=== PATIENT | female | born 1945 | race Caucasian/White ===

== ENCOUNTER → 2024-04-24 | Outpatient (CLI) | payer MEDICARE, OTHER, SELFPAY ==
--- NOTE | 2024-04-24 09:30 | XR_ITS ---
Examination: Screening digital mammography, bilateral Computer aided detection 3-D breast Tomosynthesis, bilateral Date and time of exam: April 24, 2024 0901 hours Compared to mammograms dating to April 28, 2021 Indication: Screening Technique: Nonmagnified MLO, CC views of the breasts to been obtained, reconstructed from 3-D Tomosynthesis images. R2 computer aided detection program utilized for evaluation of suspicious masses and/or abnormal calcifications. 3-D Tomosynthesis images obtained. Findings: Scattered areas of fibroglandular density. Benign calcifications. No interval suspicious masses Impression: BI-RADS category II: Benign Findings. Recommend 1 year follow-up mammogram.
== END | disposition home or self-care (01) ==
LOC: CDIM 08:54
PROVIDERS: Referring Provider Family Medicine; Visit Provider Family Medicine
DX: Z12.31 Encounter for screening mammogram for malignant neoplasm of breast (principal); R92.323 Mammographic fibroglandular density, bilateral breasts; R92.1 Mammographic calcification found on diagnostic imaging of breast
CPT/HCPCS: 77063; 77067

== ENCOUNTER → 2024-11-01 | Outpatient (CLI) | payer MEDICARE, OTHER, SELFPAY ==
[2024-11-01 10:35] LABS: Basophils % (Auto) 0 % (0-2.5); Eosinophils # (Auto) 0.1 Thou/mm3 (0.0-0.5); Eosinophils % (Auto) 1 % (0-10); Hemoglobin 14.4 g/dL (12.0-16.0); Immature Granulocytes % (Auto) 0 % (0-0); Immature Granulocytes Auto 0.02 Thou/mm3 (0.00-0.00); Lymphocytes # (Auto) 2.1 Thou/mm3 (1.0-4.8); Lymphocytes % (Auto) 30 % (10-50); Mean Corpuscular HGB Conc 32.7 g/dl (31.0-37.0); Mean Corpuscular Hemoglobin 29.4 pg (25.0-35.0); Mean Corpuscular Volume 90 fL (80-100); Monocytes # (Auto) 0.5 Thou/mm3 (0.0-0.8); Monocytes % (Auto) 8 % (0-12); Neutrophils # (Auto) 4.2 Thou/mm3 (1.8-7.7); Neutrophils % (Auto) 60 % (37-80); Nucleated Red Blood Cell % 0 /100 WBC (0); Platelet Count 241 Thou/mm3 (140-440); RDW Standard Deviation 46.6 fL (36.4-46.3); White Blood Count 6.9 Thou/mm3 (3.6-11.0)
[2024-11-01 10:57] LABS: Alanine Aminotransferase 20 U/L (10-49); Albumin, Serum 4.4 gm/dL (3.4-4.8); Albumin/Globulin Ratio 1.7 (1.2-2.2); Alkaline Phosphatase 39 U/L (46-116); Anion Gap 9 (7-16); Aspartate Amino Transferase 23 U/L (0-34); BUN/Creatinine Ratio 18 Ratio (12-20); Bilirubin,Total 0.5 mg/dL (0.3-1.2); Blood Urea Nitrogen 18 mg/dL (9-23); Calcium 9.3 mg/dL (8.3-10.6); Calcium (Corrected) 9.3 mg/dL (8.5-10.1); Carbon Dioxide 30.1 mMol/L (20.0-31.0); Cardiac Risk Estimate 2.4 RATIO (3.7-5.6); Chloride 103 mMol/L (98-107); Cholesterol 149 mg/dL (132-200); Globulin 2.6 gm/dL (2.3-3.5); Glucose 99 mg/dL (74-106); HDL Cholesterol 62 mg/dL (40-60); LDL Cholesterol,Calculated 66 mg/dL (0-130); Osmolality,Calculated 285 (275-295); Potassium 4.2 mMol/L (3.4-5.1); Sodium 142 mMol/L (136-145); Thyroid Stimulating Hormone 0.73 uIU/mL (0.55-4.78); Triglycerides 104 mg/dL (30-150); eGFR 58 See Note
[2024-11-01 13:26] LABS: T4 (Thyroxine) 7.6 mcg/dL (4.5-10.9)
== END | disposition home or self-care (01) ==
LOC: COPL 09:16
PROVIDERS: PCP Family Medicine; Referring Provider Family Medicine; Visit Provider Family Medicine
DX: E78.2 Mixed hyperlipidemia (principal); I10 Essential (primary) hypertension; I48.91 Unspecified atrial fibrillation; K21.9 Gastro-esophageal reflux disease without esophagitis; K58.0 Irritable bowel syndrome with diarrhea
CPT/HCPCS: 36415; 80053; 80061; 84436; 84443; 85025

== ENCOUNTER 2025-01-08 07:19 | Inpatient (IN) | payer MEDICARE, OTHER, SELFPAY ==
[2025-01-08] VITALS (11 sets, daily range): BP systolic 142–194; BP diastolic 78–101; PULSE 70–72; RESP 16–20; TEMP 36.1–36.8; O2SAT 95–97; BMI 33.6
--- NOTE | 2025-01-08 07:26 | EKG_ITS ---
[facility] Test Date: 2025-01-08 Pat Name: BRANDI STATON Department: Room: - Gender: Female Channel Marketing Coordinator: : 1945 Requested By: Jd Araya (ALCIRA) Order Number: [id number] Reading MD: Jd Araya (OFFAL BALER) Measurements Intervals [place] Rate: 69 P: 223 MD: 226 QRS: 23 QRSD: 98 T: 80 QT: 397 QTc: 428 Interpretive Statements ELECTRONIC ATRIAL PACEMAKER NONSPECIFIC ST & T-WAVE ABNORMALITY ABNORMAL RHYTHM ECG Compared to ECG 12/20/2023 13:04:09 T-wave abnormality now present Myocardial infarct finding no longer present /store/S0/[id number].pdf
--- NOTE | 2025-01-08 07:41 | XR_ITS ---
Examination: AP chest single view TECHNIQUE: AP portable upright chest single view Date and time: January 08, 2025, 0756 hours, comparison December 20, 2023 INDICATION: Chest pain and shortness of breath today. FINDINGS: Mild enlargement left ventricle. Cardiac leads stable position. Stable parenchymal and pleural scarring left base Mild pulmonary vascular redistribution. No lobar pneumonia IMPRESSION: Mild pulmonary vascular redistribution. Stable pleural and parenchymal scarring left base
--- NOTE | 2025-01-08 07:42 | EDRME_ITS ---
Rapid Medical Screening Exam E Arrival date/time: 01/08/25 07:19 79-year-old female presents to the Emergency Department today with complaints of syncopal episode last night patient reports he became dizzy prior to having the episode. Patient reports that on the she had an ablation with Dr. Johnson in [place] patient reports she had a syncopal episode on Tuesday as well Chief Complaint: Dizziness Vital signs: Vital Signs Temperature 98.2 F 01/08/25 07:35 Pulse Rate 70 01/08/25 07:35 Respiratory Rate 20 01/08/25 07:35 Blood Pressure 157/90 H 01/08/25 07:35 Pulse Oximetry (%) 97 01/08/25 07:35 Oxygen Delivery Method Room Air 01/08/25 07:35
--- NOTE | 2025-01-08 08:39 | PD.EDSYNC ---
ED Syncope RME/HPI General Chief Complaint: Dizziness Stated Complaint: PASSED OUT, DIZZY, NAUSEA Time Seen by Provider: 01/08/25 10:01 Arrival date/time: 01/08/25 07:19 Limitations: no limitations RME / HPI RME / HPI narrative: 01/08/25 07:19 79-year-old female presents to the Emergency Department today with complaints of syncopal episode last night patient reports he became dizzy prior to having the episode. Patient reports that on the she had an ablation with Dr. Johnson in [place] patient reports she had a syncopal episode on Tuesday as well DR. BRIDGER WEISS ED EVALUATION 79 year old female with history of atrial fibrillation, CAD, hypertension, hyperlipidemia, s/p cardiac ablation performed by Dr. Johnson in [place] on 12/31/2024, on presents to the ED for evaluation of syncopal episode today. Patient states she woke up at 03:30 AM today to use the restroom. States as she began to sit up on her bed she began to feel dizzy, described as a swaying sensation, and shortly after fell back to her bed. Accompanied by nausea and mild headache described as a fullness sensation. Patient reports she had experienced similar dizziness 3 days ago Tuesday; notes the dizziness during that time had also occurred first thing in the morning after standing up from the bed and after felt fatigued. Today she denies any fevers, chills, sweats, chest pain, cough, shortness of breath, abdominal pain, vomiting, diarrhea, or urinary symptoms. Patient reports she saw her cardio tech Dr. Solorzano yesterday and advised these episodes were less likely cardiac related and advised if occurred again to come to the ED. Related Data Home Medications ?Medication ?Instructions ?Recorded ?Confirmed omeprazole 20 mg tablet,delayed 1 tab PO DAILY ##0 04/20/13 10/20/22 release furosemide 40 mg tablet (Lasix) 40 mg PO QDAY #0 tabs 12/10/15 10/20/22 potassium chloride 10 mEq 10 meq PO QDAY #0 tabs 04/29/16 08/13/22 tablet,extended release (Klor-Con) ascorbic acid (vitamin C) 1,000 mg 1 g PO DAILY 05/30/20 08/13/22 tablet (Vitamin C) calcium 500 mg (as 1 tab PO QDAY 05/30/20 09/29/20 carbonate)-vitamin D3 5 mcg (200 unit) tablet (Calcium 500 + D) cholecalciferol (vitamin D3) 50 50 mcg PO QDAY 05/30/20 08/13/22 mcg (2,000 unit) capsule (Vitamin D3) milk thistle seed 1 tab PO DAILY 05/30/20 09/29/20 lp-wxvzlcgnzx-gygjixpbl-turmeri 250 mg-250 mg tablet (Liver Complex) iiwwecjqtgpo-Xp-amur-minerals 1 tab PO DAILY 05/30/20 08/13/22 meloxicam 15 mg tablet 15 mg PO DAILY 09/25/20 10/20/22 omega-3 fatty acids-vitamin E 1 cap PO DAILY 09/25/20 08/13/22 1,000 mg capsule Previous Rx's ?Medication ?Instructions ?Recorded simvastatin 20 mg tablet 1 tab PO HS #0 tabs 10/16/19 clonazepam 1 mg tablet 1 mg PO QDAY PRN Anxiety #0 tabs 08/13/20 loratadine 10 mg tablet 10 mg PO QDAY PRN Allergic 08/13/20 Symptoms #0 tabs amiodarone 200 mg tablet 200 mg PO QDAY #60 tabs 08/15/22 apixaban 5 mg tablet 5 mg PO BID #60 tabs 08/15/22 atenolol 25 mg tablet 25 mg PO QDAY #30 tabs 10/20/22 Allergies Allergy/AdvReac Type Severity Reaction Status Date / Time diclofenac (From Arthrote) Allergy Severe Swelling Verified 12/20/23 12:51 of Lip/Tongue/Throat Review of Systems Review of Systems Systems Reviewed: All systems reviewed, normal except as documented Past Medical History Past Medical History NEUROLOGIC: Positive Neurological Disorders, Transient Ischemic Attacks (TIA), Cerebral Palsy and Migraine CARDIAC: Positive Cardiac Disorders, Cardiac Arrhythmia, Atrial Fibrillation, Heart Murmur, Hypercholesterolemia and Hypertension RESPIRATORY: Positive Asthma and Pneumonia GASTROINTESTINAL: Positive Gastrointestinal Disorders, Hemorrhoids, Gastroesophageal Reflux Disease and Obesity REPRODUCTIVE: Positive Previous Pregnancies MUSCULOSKELETAL: Positive Musculoskeletal Disorders, Arthritis and Fractures ENT: Positive Cataracts PSYCHO/SOCIAL: Positive Depression and Anxiety OTHER HISTORY: Positive Hospitalization, Falls, Chicken Pox, Measles, Mumps and Pertussis Family History FAMILY HISTORY: Positive Family Cancer Surgical History SURGICAL: Positive Pacemaker, Angiogram and Tonsillectomy Social History SMOKING STATUS: Former smoker SUBSTANCE USE: does not use ED Exam General Limitations: Present no limitations General appearance: Present alert and in no apparent distress Head Head exam: Present atraumatic, normocephalic and normal inspection Eye Eye exam: Present normal appearance, PERRL and EOMI ENT ENT exam: Present normal exam, normal oropharynx and mucous membranes moist Neck Neck exam: Present normal inspection, full ROM and trachea midline Chest Chest inspection: Present normal inspection and symmetric chest wall rise Respiratory Respiratory exam: Present normal lung sounds bilaterally Cardiovascular Cardiovascular exam: Present regular rate, normal rhythm and normal heart sounds Abdominal Exam Abdominal exam: Present soft and normal bowel sounds Extremities Exam Extremities exam: Present normal inspection and full ROM Back Exam Back exam: Present normal inspection and full ROM Neurological Exam Neurological exam: Present alert, oriented X3 and CN II-XII intact Psychiatric Psychiatric exam: Present normal affect and normal mood Skin Skin exam: Present warm, dry, intact and normal color Course Quality Measures none Orders Category Date Time Status Cooler Worker NOW Care 01/08/25 07:41 Active EKG (ED ONLY) *Do not use* NOW Care 01/08/25 07:26 Completed Miscellaneous Nursing Order NOW Care 01/08/25 11:35 Active EKG (ED Only) Stat Exams 01/08/25 07:26 Draft XR chest 1V portable Stat Exams 01/08/25 07:41 Completed B-Type Natriuretic Peptide Stat Lab 01/08/25 08:45 Completed CBC Stat Lab 01/08/25 08:45 Completed Comprehensive Metabolic Panel Stat Lab 01/08/25 08:45 Completed Magnesium Stat Lab 01/08/25 08:45 Completed Partial Thromboplastin Time Stat Lab 01/08/25 08:45 Completed Prothrombin Time with INR Stat Lab 01/08/25 08:45 Completed Troponin I Stat Lab 01/08/25 08:45 Completed Ringers Lactated 1000 ml [Lactated Ringers] 1,000 ml Med 01/08/25 11:35 Discontinued IV 500 mls/hr Vital Signs Vital signs: Vital Signs Temperature 98.2 F 01/08/25 07:35 Pulse Rate 70 01/08/25 07:35 Respiratory Rate 20 01/08/25 07:35 Blood Pressure 157/90 H 01/08/25 07:35 Pulse Oximetry (%) 97 01/08/25 07:35 Oxygen Delivery Method Room Air 01/08/25 07:35 Pulse ox is 97% on room air which is adequate. Syncope MDM Narrative MDM Narrative:: Patient is a 79-year-old male to the [facility] ferment after having had a syncopal episode. Vital signs and exam as listed. Concern for ACS arrhythmia electrolyte abnormality among others. Ordered labs EKG chest x-ray offered medication for symptom relief. EKG performed today at 7:32 AM prolonged MN, normal QT, heart rate 69, nonspecific T wave changes, not a cardiac alert. Labs without acute hematologic or significant metabolic abnormality. No transaminitis, troponin not elevated 1220: I spoke with cardio tech Dr. Solorzano. Advised admission for further work-up. I spoke with hospitalist team A regarding admission. Patient data External records reviewed:: [facility] previous records (I reviewed ED Visit on 12/20/2023 ) Clinical information provided by:: patient Social determinants that could affect healthcare access:: none Patient has the following chronic illnesses:: CAD, paroxysmal atrial fibrillation, hypertension, hyperlipidemia How is presenting disease/condition affected by chronic disease/condition?: exacerbated by Evaluation data The following diagnostics were reviewed and interpreted by me:: lab results, radiology exam(s) and EKG tracing(s) Lab and/or radiology exams considered but not ordered:: None Interpretation Summary: Ordering Physician: Quiana PIERRE)Jd NP Date of Service: 01/08/25 Procedure(s): XR chest 1V portable Accession Number(s): [id number] cc: Quiana PIERRE)Jd NP; Jose Gold MD; Montse Casas MD~ Examination: AP chest single view TECHNIQUE: AP portable upright chest single view Date and time: January 08, 2025, 0756 hours, comparison December 20, 2023 INDICATION: Chest pain and shortness of breath today. FINDINGS: Mild enlargement left ventricle. Cardiac leads stable position. Stable parenchymal and pleural scarring left base Mild pulmonary vascular redistribution. No lobar pneumonia IMPRESSION: Mild pulmonary vascular redistribution. Stable pleural and parenchymal scarring left base Dictated By: Jose Gold MD Signed By: <Electronically signed by Jose Gold MD in [place]> 01/08/25 0844 Medications / Prescriptions Medications or Prescriptions considered but not ordered:: None Medication administrations:: Medication Administration History Acetaminophen (Acetaminophen 325 Mg Tablet) 650 mg PO Q6H PRN PRN Reason: Fever >101.5 Stop: 02/07/25 14:06 Acetaminophen (Acetaminophen 325 Mg Tablet) 650 mg PO Q6H PRN PRN Reason: PAIN SCALE 1-3 (mild Stop: 02/07/25 14:06 Apixaban (Apixaban 2.5 Mg Tablet) 5 mg PO BID [facility] Stop: 02/07/25 20:59 Atenolol (Atenolol 25 Mg Tablet) 50 mg PO BID [facility] Stop: 02/07/25 14:14 Last Admin: 01/08/25 15:24 Dose: 50 mg Documented By: PAM Atorvastatin Calcium (Atorvastatin Calcium 20 Mg Tablet) 20 mg PO HS [facility] Stop: 02/07/25 20:59 Labetalol HCl (Labetalol Inj 5 Mg/Ml Vial 20 Ml) 10 mg IVP Q10MIN PRN PRN Reason: sBP > 180 or dBP > 100 Stop: 02/07/25 14:29 Ondansetron HCl (Ondansetron Inj 2 Mg/Ml Inj 2 Ml) 4 mg IVP Q6H PRN; Protocol PRN Reason: NAUSEA OR VOMITING Stop: 02/07/25 14:06 Sennosides (Senna/Docusate Sod 1 Tab Tablet) 1 tab PO QDAY PRN; Protocol PRN Reason: CONSTIPATION Stop: 02/07/25 14:26 Discontinued Medications Lactated Ringer's (Lactated Ringers) 1,000 mls @ 500 mls/hr IV .Q2H ONE Stop: 01/08/25 13:34 Last Infusion: 01/08/25 15:21 Dose: Infused Documented By: Admin: 01/08/25 11:55 Dose: 500 mls/hr Documented By: PAM Pantoprazole Sodium (Pantoprazole 20 Mg Tablet) 20 mg PO QDAY [facility] Stop: 02/08/25 08:59 Pantoprazole Sodium (Pantoprazole 20 Mg Tablet) 20 mg PO QDAY [facility] Stop: 02/08/25 08:59 See above Consultations Consultation(s) initiated? (list below): Yes Consultation #1 (Physician, Specialty, Details): See MDM Diagnosis Syncope Differential Diagnosis: syncope due to orthostatic hypotension, vasovagal syncope, complete atrioventricular block, subarachnoid hemorrhage and dehydration Most likely diagnosis given after review of the tests above:: Recurrent syncope Admission Indicated Admission indicated?: indicated Admission Request Was there a request for admission?: Yes Admission Attestation Admission request attestation: Discussed case with [] from Hospitalist service regarding admission. Discussed patients ED course, exam findings, labs, and radiology results. The Hospitalist [agrees,declines] to accept the patient for admission. Disposition Plan Disposition Plan: Admit Critical Care Time Critical Care Time Critical Care Time: Yes Total Critical Care Time (min.): 45 Attestation: The high probability of sudden, clinically significant deterioration in the patient's condition required the highest level of my preparedness to intervene urgently. The services I provided to this patient were to treat and/or prevent clinically significant deterioration. Services included the following: chart data review, reviewing nursing notes and/or old charts, documentation time, data center consultant collaboration regarding findings and treatment options, medication orders and management, direct patient care, vital sign assessments and ordering, interpreting and reviewing diagnostic studies and lab tests. Aggregate critical care time includes only time during which I was engaged in work directly related to the patient's care, as described above, whether at bedside or elsewhere in the Emergency Department. It did not include time spent performing other reported procedures or the services of residents, students, nurses or physician assistants. Discharge Plan Plan Patient Disposition: Admit Acute Care w/in Hospital Problem List Clinical Impression: Recurrent syncope
[2025-01-08 09:05] LABS: Basophils # (Auto) 0.0 Thou/mm3 (0.0-0.2); Basophils % (Auto) 1 % (0-2.5); Eosinophils # (Auto) 0.1 Thou/mm3 (0.0-0.5); Eosinophils % (Auto) 2 % (0-10); Hematocrit 42.2 % (36.0-46.0); Hemoglobin 13.9 g/dL (12.0-16.0); Immature Granulocytes Auto 0.02 Thou/mm3 (0.00-0.00); Lymphocytes # (Auto) 1.7 Thou/mm3 (1.0-4.8); Lymphocytes % (Auto) 27 % (10-50); Mean Corpuscular HGB Conc 32.9 g/dl (31.0-37.0); Mean Corpuscular Hemoglobin 30.4 pg (25.0-35.0); Mean Corpuscular Volume 92 fL (80-100); Monocytes # (Auto) 0.5 Thou/mm3 (0.0-0.8); Monocytes % (Auto) 7 % (0-12); Neutrophils # (Auto) 4.0 Thou/mm3 (1.8-7.7); Neutrophils % (Auto) 64 % (37-80); Nucleated Red Blood Cell # 0.00 Thou/mm3 (0.00-0.00); Nucleated Red Blood Cell % 0 /100 WBC (0); Platelet Count 235 Thou/mm3 (140-440); RDW Standard Deviation 46.7 fL (36.4-46.3); Red Blood Count 4.57 Miln/mm3 (4.00-5.20); White Blood Count 6.3 Thou/mm3 (3.6-11.0)
[2025-01-08 09:17] LABS: B-Type Natriuretic Peptide 71 pg/mL (0-100)
[2025-01-08 09:19] LABS: INR 1.1 (0.9-1.3); Partial Thromboplastin Time 31.2 Seconds (22.0-36.0); Prothrombin Time 12.0 Seconds (9.0-12.2)
[2025-01-08 09:20] LABS: Alanine Aminotransferase 15 U/L (10-49); Albumin, Serum 4.3 gm/dL (3.4-4.8); Albumin/Globulin Ratio 1.7 (1.2-2.2); Alkaline Phosphatase 37 U/L (46-116); Anion Gap 11 (7-16); Aspartate Amino Transferase 28 U/L (0-34); BUN/Creatinine Ratio 12 Ratio (12-20); Bilirubin,Total 0.5 mg/dL (0.3-1.2); Blood Urea Nitrogen 11 mg/dL (9-23); Calcium 9.7 mg/dL (8.3-10.6); Calcium (Corrected) 9.7 mg/dL (8.5-10.1); Carbon Dioxide 28.5 mMol/L (20.0-31.0); Chloride 105 mMol/L (98-107); Creatinine (Component) 0.9 mg/dL (0.6-1.3); Estimated Creatinine Clearance 56.5 mL/min (>60); Globulin 2.5 gm/dL (2.3-3.5); Glucose 98 mg/dL (74-106); Magnesium 1.9 mg/dL (1.6-2.6); Osmolality,Calculated 286 (275-295); Potassium 4.2 mMol/L (3.4-5.1); Sodium 144 mMol/L (136-145); Total Protein 6.8 gm/dL (5.7-8.2); Troponin I < 0.020 ng/mL (0.0-0.045); eGFR > 60 See Note
[2025-01-08] MEDS: RINGERS LACTATED 1000 ML 1,000 ML 500 ML IV (11:55)
--- NOTE | 2025-01-08 14:28 | ESHP_ITS ---
<Statement entered by Xander Jalloh MD - 01/11/25 15:14> I reviewed above note and agree with findings and plans. I have also personally examined the patient with medicine team and went over assessment and plan with medical team including internet technology manager and resident physician. <Statement entered by Baljeet Ch MD - 01/08/25 15:46> Senior Resident Attestation: I supervised/discussed management plan with internet technology manager physician Dr. Carroll, and was involved in the care of this patient. I personally saw and examined the patient and discussed the assessment and plan with the entire medicine team, including my attending. I agree with the assessment and plan as documented. Patient is a 79 years old female with PMH of afib s/p ablation 12/31/24, sick sinus syndrome s/p pacemaker 12/18/2022, TIA, HLD, HTN, BPPV presented to the ED due to 2 episodes of syncope and dizziness. Initial work up in the ED was negative. Cardiology was consulted in the ED and patient was admitted to telemetry for further work up and rule out cardiac reasons of her syncope episodes given recent cardiac ablation. Patient's care was discussed with attending physician, Dr. Jalloh. Baljeet Ch MD PGY-3. Documentation for date of: 01/08/25 HPI History of Present Illness History of present illness: Ms. Smith is a 79 y/o female with PMH of afib s/p ablation 12/31/24, sick sinus syndrome s/p pacemaker 12/18/2022, TIA, HLD, HTN, BPPV who presents with 2 episodes of syncope preceded by dizziness. Patient had a syncopal episode Tuesday night when she sat up in bed. When she sat up, she began to feel dizzy which lasted for several seconds, had a several second syncopal episode with LOC, then fully regained consciousness without confusion. This happened again last night. Patient previously had cardiac ablation on 12/31/[address] Johnson in [place]. She follows with Dr. Solorzano, who she saw yesterday outpatient for the syncopal episode. He was minimally concerned for cardiac cause of syncope but counseled patient on going to the ED if symptoms occurred again. Patient previously had 1 syncopal episode several years ago that presented with the same symptoms of dizziness prodrome while sitting that lasted a few seconds, a few seconds of LOC, then complete and immediate return to consciousness. Patient denies chest pain, abdominal pain, shortness of breath, LE swelling, recent illnesses, recent travel. She does have a hx of BPPV which usually resolves with the Fozia maneuver and specific eye exercises. She tried these exercises on Tuesday after the syncopal episodes, and this triggered a vertigo attack. Patient reports that she took her BP at home when she had the first syncopal episode, notes that it was unremarkable but could not remember the exact BP. Patient was examined at bedside. She reports continued dizziness with vertigo. Orthostatics positive. Denies headache or acute changes in vision. At bedside pt BP was 199/107. ED course: BP 157/90, positive orthostatics. CBC, CMP, coags WNL. Troponin negative, BNP negative. EKG showed atrial pacing HR 69, QTc 428. CXR showed stable/chronic parenchymal and pleural scarring of the left base c/w interstitial disease. Given 1L LR. Consulted Dr. Solorzano. PMHx: Afib (dx 01/29/2024) s/p ablation on Eliquis TIA 08/12/2022 Hyperlipidemia sick sinus syndrome s/p pacemaker 12/18/2022 Hypertension BPPV Interstitial lung disease [place], black , coyote bites Allergies: Metoprolol - itching Amiodarone - itching and swelling of tongue Cardizem - itching Diclofenac - swelling Home meds: Eliquis 5 mg BID Atenolol 50 mg BID Simvastatin 20 mg daily Clonazepam 1 mg QD PRN Omeprazole 20 mg daily Multivitamin Calcium 1200 mg daily Vitamin C 1000 mg daily B complex citamin D3 25 mcg daily Xyzal 5 mg daily PRN SgHx: Cardiac ablation 12/31/24 Pacemaker implant 12/18/2022 Left knee tendon repair 04/23/2013 Right shoulder rotator cuff repair 05/25/2016 SHx: Quit smoking 15 years ago Quit drinking 2-3 years ago, 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 Denies recreational drug use Lives at home with FHx: unremarkable Review of Systems Review of Systems Narrative Review of Systems: 14 point ROS negative other than HPI Exam Vital Signs Temp Pulse Resp BP Pulse Ox O2 Del Method 98.2 F 70 17 154/81 H 96 Room Air 01/08/25 07:35 01/08/25 11:41 01/08/25 09:58 01/08/25 11:41 01/08/25 09:58 01/08/25 09:58 Narrative Exam General: No acute distress, well nourished Eye: PERRL, EOMI, normal conjunctiva, no scleral icterus HENT: Normocephalic, atraumatic, normal hearing, moist oral mucosa Neck: Supple, non-tender, no JVD, no lymphadenopathy Lungs: Clear to auscultation bilaterally, non-labored respirations, symmetric chest rise, no use of accessory muscles Heart: Normal S1 and S2, no S3 or S4 appreciated. Normal rate and regular rhythm, no murmurs, rubs gallops, or edema. Peripheral pulses intact bilaterally, capillary refill brisk distally Abdomen: Soft, non-tender, non-distended, normal bowel sounds. No guarding or rebound tenderness. Musculoskeletal: Normal range of motion and strength, no tenderness or swelling Skin: Skin is warm, dry, no rashes or lesions. Neurologic: Alert, awake and oriented x3. CN II-XII grossly intact. No focal neuro deficits. Psychiatric: Cooperative, appropriate mood and affect Results: Labs 01/08/25 08:45 01/08/25 08:45 Labs: Short CBC 01/08/25 Range/Units 08:45 WBC 6.3 (3.6-11.0) Thou/mm3 Hgb 13.9 (12.0-16.0) g/dL Hct 42.2 (36.0-46.0) % Plt Count 235 (140-440) Thou/mm3 [facility] 01/08/25 08:45 Sodium 144 Potassium 4.2 Chloride 105 Carbon Dioxide 28.5 BUN 11 Creatinine 0.9 Glucose 98 Calcium 9.7 Cardiac Enzymes 01/08/25 Range/Units 08:45 Troponin I < 0.020 (0.0-0.045) ng/mL Liver Function 01/08/25 Range/Units 08:45 Total Bilirubin 0.5 (0.3-1.2) mg/dL AST 28 (0-34) U/L ALT 15 (10-49) U/L Alkaline Phosphatase 37 L (46-116) U/L Albumin 4.3 (3.4-4.8) gm/dL Quality Measures Quality Measures none Advance care planning discussed with:: patient and spouse Medications Home Medications and Allergies Home Medications ?Medication ?Instructions ?Recorded ?Confirmed ?Type omeprazole 20 mg tablet,delayed 1 tab PO DAILY ##0 10/2610/20/22 History release furosemide 40 mg tablet (Lasix) 40 mg PO QDAY #0 tabs 12/10/15 10/20/22 History potassium chloride 10 mEq 10 meq PO QDAY #0 tabs 04/2908/13/22 History tablet,extended release (Klor-Con) ascorbic acid (vitamin C) 1,000 mg 1 g PO DAILY 08/13/22 History tablet (Vitamin C) calcium 500 mg (as 1 tab PO QDAY 05/30/2009/29 History carbonate)-vitamin D3 5 mcg (200 unit) tablet (Calcium 500 + D) cholecalciferol (vitamin D3) 50 50 mcg PO QDAY 08/13/22 History mcg (2,000 unit) capsule (Vitamin D3) milk thistle seed 1 tab PO DAILY 05/30/2009/13 History yb-cvaxilmyic-cwajaweln-turmeri 250 mg-250 mg tablet (Liver Complex) xloqkomjcxut-Zo-xebn-minerals 1 tab PO DAILY 05/30/20 08/13/22 History meloxicam 15 mg tablet 15 mg PO DAILY 09/25/2012/05 History omega-3 fatty acids-vitamin E 1 cap PO DAILY 09/25/20 08/13/22 History 1,000 mg capsule Allergies Allergy/AdvReac Type Severity Reaction Status Date / Time diclofenac (From Arthrote) Allergy Severe Swelling Verified 12/20/23 12:51 of Lip/Tongue/Throat Visit Medications Acetaminophen (Acetaminophen 325 Mg Tablet) 650 mg PO Q6H PRN PRN Reason: Fever >101.5 Stop: 02/07/25 14:06 Acetaminophen (Acetaminophen 325 Mg Tablet) 650 mg PO Q6H PRN PRN Reason: PAIN SCALE 1-3 (mild Stop: 02/07/25 14:06 Apixaban (Apixaban 2.5 Mg Tablet) 5 mg PO BID IMLADY Stop: 02/07/25 20:59 Atenolol (Atenolol 25 Mg Tablet) 50 mg PO BID MILADY Stop: 02/07/25 14:14 Atorvastatin Calcium (Atorvastatin Calcium 20 Mg Tablet) 20 mg PO HS MILADY Stop: 02/07/25 20:59 Labetalol HCl (Labetalol Inj 5 Mg/Ml Vial 20 Ml) 10 mg IVP Q10MIN PRN PRN Reason: sBP > 180 or dBP > 100 Stop: 02/07/25 14:29 Ondansetron HCl (Ondansetron Inj 2 Mg/Ml Inj 2 Ml) 4 mg IVP Q6H PRN; Protocol PRN Reason: NAUSEA OR VOMITING Stop: 02/07/25 14:06 Pantoprazole Sodium (Pantoprazole 20 Mg Tablet) 20 mg PO QDAY MILADY Stop: 02/08/25 08:59 Sennosides (Senna/Docusate Sod 1 Tab Tablet) 1 tab PO QDAY PRN; Protocol PRN Reason: CONSTIPATION Stop: 02/07/25 14:26 Discontinued Medications Lactated Ringer's (Lactated Ringers) 1,000 mls @ 500 mls/hr IV .Q2H ONE Stop: 01/08/25 13:34 Last Admin: 01/08/25 11:55 Dose: 500 mls/hr Assessment & Plan Plan Ms. Smith is a 79 y/o female with PMH of afib s/p ablation 12/31/24, sick sinus syndrome s/p pacemaker 12/18/2022, TIA, HLD, HTN, BPPV who presents with 2 episodes of syncope preceded by dizziness. Admitted for syncope workup. #Syncope 2 episodes of syncope in the past 4 days when sitting up from supine position. Prodrome several seconds of dizziness. LOC for several seconds. Complete and immediate return of consciousness w/o confusion Pt had one episode of syncope years ago. Similar presentation. EKG, Troponin, CBC, CMP, BNP WNL. Orthostatics positive. Likely orthostatic in nature. Other DDX includes cardiac etiology/arrhythmia Plan: - Consulted Dr. Solorzano, appreciate recs - Given 1L LR in ED. #Hypertension 199/107 in ED after 1L LR given Plan: - Continue Atenolol 50 mg PO BID - Labetalol 10 mg IV q10min PRN sBP > 180 or dBP > 100 #Afib s/p ablation 12/31/24 #Sick sinus syndrome s/p pacemarker Home med: Eliquis 5 mg PO BID, Atenolol 50 mg BID Plan: - Continue home Eliquis 5 mg PO BID - Continue home Atenolol 50 mg PO BID #TIA #Hyperlipidemia Home med: Simvastatin 20 mg QHS (not on formulary) Plan: - Atorvastatin 20 mg PO QHS Checklist Dispo: Pending syncope workup Diet: Cardiac Bowel Reg: Doc-Senna daily PRN VTE ppx: Eliquis 5 mg PO BID GI ppx: Pantoprazole 20 mg PO daily Pain mgmt: Tylenol PRN Code status: full Plan discussed with Dr. Ch and Dr. Yeimi Carroll MD PGY1
--- NOTE | 2025-01-08 15:59 | ESCONSULT_ITS ---
<Statement entered by Winnie Solorzano MD - 01/16/25 22:49> I personally examined the patient and evaluated patient with resident physician Dr. Jarad Carrillo and the patient known to me history of paroxysmal afibrillation status post ablation came to the hospital multiple symptoms including dizziness syncopal episode possible vasovagal depressor syncope no clear etiology no arrhythmias seen will monitor the patient overnight reevaluate her if she has no further symptoms discharged home agree with treatment plan recommendation as documented patient also should be hydrated she may have some clinical dehydration. HPI Data of Consult Requesting Physician: Xander Jalloh MD Admitting Provider: Xander Jalloh MD Attending Provider: Xander Jalloh MD Primary Care Provider: Montse Casas MD Consult Narrative History of present illness: 79-year-old female with a PMH of A-fib status post cardiac ablation on 12/31/2024, CAD, hypertension, hyperlipidemia, on Eliquis who presented to the ED on 01/08/2025 after a syncopal episode. On arrival she stated that she woke up at 3:30 in the morning to use the restroom and that as she began to sit up she felt dizzy, described as a swaying sensation and shortly afterwards fell back to her bed. This was accompanied by nausea and mild headache described as a fullness sensation. She reported that she had experienced similar dizziness 3 days ago and notes that the dizziness during that time had also occurred for Johnson in the morning after standing up from her bed. On arrival she denied fevers chills sweats chest pain cough shortness of breath abdominal pain vomiting diarrhea or urinary symptoms. The patient is well-known to Dr. Solorzano and was seen in the office on 01/07/2025. She mentioned that she had been feeling somewhat tired but denied chest pain or shortness of breath. ED course: BP 157/90, positive orthostatics. CBC, CMP, coags WNL. Troponin negative, BNP negative. EKG showed atrial pacing HR 69, QTc 428. CXR showed stable/chronic parenchymal and pleural scarring of the left base c/w interstitial disease. Given 1L LR. Reason for consult: Cardiology was consulted for management of the patient's syncopal episode. History PMH: Hyperlipidemia, HTN, angina, CAD, supraventricular premature beats, palpitations, TIA 08-12-2022, sick sinus syndrome status post pacemaker 12/18/2022, BPPV, interstitial lung disease Surgical history: Ablation 12/31/2024, cyst removal 2020, cataract X2 2018, shoulder 06/2016, knee 2016 Family history: Cancer unspecified Social history: Former smoker, no alcohol Allergies: Diclofenac, misoprostol, norco, metoprolol, Cardizem, amiodarone Home medications: Clonazepam Vitamin C Vitamin D Omeprazole Simvastatin Eliquis Xyzal Calcium Super B Complex Atenolol Flecainide cc:: cc: Xander Jalloh MD Review of Systems Review of Systems Narrative Review of Systems: Review of Systems: At time of cardiology consultation * General: Denies fevers, chills. * HEENT: Denies headache, congestion, or sore throat. * Cardiac: Denies chest pain or palpitations. * Pulmonary: Denies shortness of breath or cough. * GI: Denies nausea, vomiting, diarrhea, constipation, melena, or hematochezia. (Had nausea in the morning during syncopal episode, has since resolved) * : Denies dysuria, hematuria, frequency, or urgency. * MSK: Denies pain in the extremities, joints, or myalgias. * Neuro: Patient mentions that she sees double occasionally. Denies weakness, numbness, or speech difficulty. Exam Vital Signs Temp Pulse Resp BP Pulse Ox O2 Del Method 98.2 F 70 16 142/81 H 96 Room Air 01/08/25 07:35 01/08/25 15:24 01/08/25 15:00 01/08/25 15:24 01/08/25 15:00 01/08/25 15:00 Results Labs 01/08/25 08:45 01/08/25 08:45 Labs: Short CBC 01/08/25 Range/Units 08:45 WBC 6.3 (3.6-11.0) Thou/mm3 Hgb 13.9 (12.0-16.0) g/dL Hct 42.2 (36.0-46.0) % Plt Count 235 (140-440) Thou/mm3 BMP 01/08/25 08:45 Sodium 144 Potassium 4.2 Chloride 105 Carbon Dioxide 28.5 BUN 11 Creatinine 0.9 Glucose 98 Calcium 9.7 Cardiac Enzymes 01/08/25 Range/Units 08:45 Troponin I < 0.020 (0.0-0.045) ng/mL Liver Function 01/08/25 Range/Units 08:45 Total Bilirubin 0.5 (0.3-1.2) mg/dL AST 28 (0-34) U/L ALT 15 (10-49) U/L Alkaline Phosphatase 37 L (46-116) U/L Albumin 4.3 (3.4-4.8) gm/dL Quality Measures Quality Measures none Advance care planning discussed with:: patient Medications Home Medications and Allergies Home Medications ?Medication ?Instructions ?Recorded ?Confirmed ?Type omeprazole 20 mg tablet,delayed 1 tab PO DAILY ##0 10/2610/20/22 History release furosemide 40 mg tablet (Lasix) 40 mg PO QDAY #0 tabs 12/10/15 10/20/22 History potassium chloride 10 mEq 10 meq PO QDAY #0 tabs 04/2908/13/22 History tablet,extended release (Klor-Con) ascorbic acid (vitamin C) 1,000 mg 1 g PO DAILY 08/13/22 History tablet (Vitamin C) calcium 500 mg (as 1 tab PO QDAY 05/30/2009/29 History carbonate)-vitamin D3 5 mcg (200 unit) tablet (Calcium 500 + D) cholecalciferol (vitamin D3) 50 50 mcg PO QDAY 08/13/22 History mcg (2,000 unit) capsule (Vitamin D3) milk thistle seed 1 tab PO DAILY 05/30/2009/13 History bf-otrbljqnku-sdtjcdwwm-turmeri 250 mg-250 mg tablet (Liver Complex) uqyycgcptape-Dq-krkn-minerals 1 tab PO DAILY 05/30/20 08/13/22 History meloxicam 15 mg tablet 15 mg PO DAILY 09/25/2012/05 History omega-3 fatty acids-vitamin E 1 cap PO DAILY 09/25/20 08/13/22 History 1,000 mg capsule Allergies Allergy/AdvReac Type Severity Reaction Status Date / Time diclofenac (From Arthrotec) Allergy Severe Swelling Verified 12/20/23 12:51 of Lip/Tongue/Throat amiodarone Allergy Swelling Verified 01/08/25 18:14 of Lip/Tongue/Throat diltiazem (From Cardizem) Allergy itching Verified 01/08/25 18:14 metoprolol Allergy itching Verified 01/08/25 18:14 Visit Medications Acetaminophen (Acetaminophen 325 Mg Tablet) 650 mg PO Q6H PRN PRN Reason: Fever >101.5 Stop: 02/07/25 14:06 Acetaminophen (Acetaminophen 325 Mg Tablet) 650 mg PO Q6H PRN PRN Reason: PAIN SCALE 1-3 (mild Stop: 02/07/25 14:06 Apixaban (Apixaban 2.5 Mg Tablet) 5 mg PO BID MILADY Stop: 02/07/25 20:59 Atenolol (Atenolol 25 Mg Tablet) 50 mg PO BID MILADY Stop: 02/07/25 14:14 Last Admin: 01/08/25 15:24 Dose: 50 mg Atorvastatin Calcium (Atorvastatin Calcium 20 Mg Tablet) 20 mg PO HS MILADY Stop: 02/07/25 20:59 Labetalol HCl (Labetalol Inj 5 Mg/Ml Vial 20 Ml) 10 mg IVP Q10MIN PRN PRN Reason: sBP > 180 or dBP > 100 Stop: 02/07/25 14:29 Ondansetron HCl (Ondansetron Inj 2 Mg/Ml Inj 2 Ml) 4 mg IVP Q6H PRN; Protocol PRN Reason: NAUSEA OR VOMITING Stop: 02/07/25 14:06 Sennosides (Senna/Docusate Sod 1 Tab Tablet) 1 tab PO QDAY PRN; Protocol PRN Reason: CONSTIPATION Stop: 02/07/25 14:26 Discontinued Medications Lactated Ringer's (Lactated Ringers) 1,000 mls @ 500 mls/hr IV .Q2H ONE Stop: 01/08/25 13:34 Last Infusion: 01/08/25 15:21 Dose: Infused Pantoprazole Sodium (Pantoprazole 20 Mg Tablet) 20 mg PO QDAY MILADY Stop: 02/08/25 08:59 Pantoprazole Sodium (Pantoprazole 20 Mg Tablet) 20 mg PO QDAY MILADY Stop: 02/08/25 08:59 Assessment & Plan Plan 79-year-old female with a PMH of A-fib status post cardiac ablation on 12/31/2024, CAD, hypertension, hyperlipidemia, on Eliquis who presented to the ED on 01/08/2025 after syncopal episode. Cardiology was consulted for management of patient's syncopal episode. #Syncope #A-fib on Eliquis status post ablation #Hypertension #Supraventricular arrhythmia #Hypertension #Sick sinus syndrome status post pacemaker placement #TIA #Hyperlipidemia - The patient's syncope may be due to several different factors including. Consider dehydration, autonomic dysfunction, previously unknown ventricular arrhythmia. - Patient was slightly dehydrated upon presentation per the ED nurse, probably less likely culprit of syncope. - Patient is slightly orthostatically hypertensive, her blood pressure laying down is 154/81, standing it is 149/101. However, sitting it is 174/78. This may reinforce autonomic dysfunction as the culprit to the syncope. - The patient had a recent ablation due to A-fib. Given the patient's cardiac history consider ventricular arrhythmia previously unknown as a possible syncope culprit. - Patient is on Eliquis, not on aspirin, Eliquis sufficient for anticoagulation status post ablation Plan: - Echo ordered - Recommend repeat orthostatic blood pressures - Monitor the patient's rhythm, consider future Holter monitor - Continue Eliquis, labetalol, home medications for hypertension and hyperlipidemia - Will do pacemaker interrogation Patient was seen and discussed with my attending physician Dr. Solorzano. Jarad Carrillo DO PGY-1.
[2025-01-08] MEDS: LABETALOL INJ 5 MG/ML VIAL 20 ML 10 MG IVP (17:30)
[2025-01-08] MEDS: ATORVASTATIN CALCIUM 20 MG TABLET PO (20:38)
[2025-01-08] MEDS: APIXABAN 2.5 MG TABLET 5 MG PO (20:38)
[2025-01-09] VITALS (9 sets, daily range): BP systolic 129–163; BP diastolic 73–93; PULSE 70–73; RESP 16–20; TEMP 36.1–36.7; O2SAT 95–98; BMI 34.4
[2025-01-09 06:05] LABS: Basophils # (Auto) 0.0 Thou/mm3 (0.0-0.2); Basophils % (Auto) 0 % (0-2.5); Eosinophils # (Auto) 0.1 Thou/mm3 (0.0-0.5); Eosinophils % (Auto) 2 % (0-10); Hematocrit 40.8 % (36.0-46.0); Hemoglobin 13.0 g/dL (12.0-16.0); Immature Granulocytes Auto 0.01 Thou/mm3 (0.00-0.00); Lymphocytes # (Auto) 2.5 Thou/mm3 (1.0-4.8); Lymphocytes % (Auto) 35 % (10-50); Mean Corpuscular HGB Conc 31.9 g/dl (31.0-37.0); Mean Corpuscular Hemoglobin 29.7 pg (25.0-35.0); Mean Corpuscular Volume 93 fL (80-100); Monocytes # (Auto) 0.6 Thou/mm3 (0.0-0.8); Monocytes % (Auto) 8 % (0-12); Neutrophils # (Auto) 3.8 Thou/mm3 (1.8-7.7); Neutrophils % (Auto) 54 % (37-80); Nucleated Red Blood Cell # 0.00 Thou/mm3 (0.00-0.00); Nucleated Red Blood Cell % 0 /100 WBC (0); Platelet Count 213 Thou/mm3 (140-440); RDW Standard Deviation 47.1 fL (36.4-46.3); Red Blood Count 4.38 Miln/mm3 (4.00-5.20); White Blood Count 7.0 Thou/mm3 (3.6-11.0)
[2025-01-09 06:24] LABS: Alanine Aminotransferase 16 U/L (10-49); Albumin, Serum 3.9 gm/dL (3.4-4.8); Albumin/Globulin Ratio 1.6 (1.2-2.2); Alkaline Phosphatase 35 U/L (46-116); Anion Gap 11 (7-16); Aspartate Amino Transferase 25 U/L (0-34); BUN/Creatinine Ratio 11 Ratio (12-20); Bilirubin,Total 0.6 mg/dL (0.3-1.2); Blood Urea Nitrogen 8 mg/dL (9-23); Calcium 9.6 mg/dL (8.3-10.6); Calcium (Corrected) 9.7 mg/dL (8.5-10.1); Carbon Dioxide 26.7 mMol/L (20.0-31.0); Chloride 107 mMol/L (98-107); Creatinine (Component) 0.7 mg/dL (0.6-1.3); Estimated Creatinine Clearance 73.6 mL/min (>60); Globulin 2.5 gm/dL (2.3-3.5); Glucose 89 mg/dL (74-106); Magnesium 1.9 mg/dL (1.6-2.6); Osmolality,Calculated 286 (275-295); Phosphorous 3.7 mg/dL (2.4-5.1); Potassium 3.7 mMol/L (3.4-5.1); Sodium 145 mMol/L (136-145); Total Protein 6.4 gm/dL (5.7-8.2); eGFR > 60 See Note
--- NOTE | 2025-01-09 07:14 | ESPR_ITS ---
<Statement entered by Xander Jalloh MD - 01/11/25 15:14> I reviewed above note and agree with findings and plans. I have also personally examined the patient with medicine team and went over assessment and plan with medical team including general internist and physician leader and resident physician. <Statement entered by Kristopher Rey MD - 01/09/25 12:49> Patient was examined and case was reviewed with team including attending physician. Note reviewed, I agree with most of its contents and agree with the patient's care as documented by Dr. Carroll Patient seen and evaluated at the bedside. No overnight events reported. Vital signs and labs reviewed. Orthostatic vital signs positive. Continues to report dizziness and lightheadedness. Patient is pending echocardiogram and pacemaker interrogation by cardiology team. Head CT was also ordered as part of syncope workup. Case discussed with my attending Dr. Yeimi Rey MD PGY-2 Disclaimer: Despite multiple revisions, due to the dictation software being used, the document bellow may not be free of grammatical errors including phonetic/typographic errors. However, this does not deter from our commitment to providing health care in the patient's best interest in mind. Documentation for date of: 01/09/25 Subjective Subjective Interval history: BP elevated yesterday sBP 190s. Restarted home Atenolol 50 mg PO BID. Needed labetalol 10 mg IV x1 yesterday for HTN. Cardiology consulted, noted that Eliquis should be enough without ASA or plavix given hx of afib s/p ablation and hx TIA. Patient evaluated at bedside. She reports continued dizziness. Denies diplopia, continued blurry vision. Last saw optometry within the past year. No further episodes of syncope while in hospital. Orthostatics this AM negative after IV fluids. Does not have much of an appetite but was able to eat some of her breakfast. Exam Vital Signs Temp Pulse Resp BP Pulse Ox O2 Del Method 98.0 F 71 18 163/86 H 98 Room Air 01/09/25 04:00 01/09/25 04:00 01/09/25 04:00 01/09/25 04:00 01/09/25 04:00 01/09/25 04:00 Narrative Exam General: No acute distress, well nourished Eye: PERRL, EOMI, normal conjunctiva, no scleral icterus HENT: Normocephalic, atraumatic, normal hearing, moist oral mucosa Neck: Supple, non-tender, no JVD, no lymphadenopathy Lungs: Clear to auscultation bilaterally, non-labored respirations, symmetric chest rise, no use of accessory muscles Heart: Normal S1 and S2, no S3 or S4 appreciated. Normal rate and regular rhythm, no murmurs, rubs gallops, or edema. Peripheral pulses intact bilaterally, capillary refill brisk distally Abdomen: Soft, non-tender, non-distended, normal bowel sounds. No guarding or rebound tenderness. Musculoskeletal: Normal range of motion and strength, no tenderness or swelling Skin: Skin is warm, dry, no rashes or lesions. Psychiatric: Cooperative, appropriate mood and affect Neurologic: Mental status: Orientation: Oriented to person, place, time, and situation Communication: Patient is cooperative and can follow simple instructions Language: Speech fluent, normal rate and volume, comprehension intact Cranial nerves: CN II: Visual colvin intact CN III: Pupils equal, round, and reactive to light CN III, IV, : No gaze deviation, no nystagmus Horizontal pursuit: intact Vertical pursuit: intact Ptosis: none CN V: Facial sensation to light touch intact bilaterally at the forehead, cheeks, and jaw line CN VII: Face symmetric, no facial droop appreciated CN VIII: Able to hear and respond to conversation at normal volume, intact to finger rub CN IX, X: Palate elevation symmetric, uvula midline CN XI: Head turn and shoulder shrug strong, symmetric bilaterally CN XII: Normal tongue protrusion without deviation, no fasciculations Motor: Normal bulk and tone No atrophy No abnormal movements or fasciculations Muscle strength: Shoulder abduction: R 5/5 L 5/5 Elbow flexion: R 5/5 L 5/5 Elbow extension: R 5/5 L 5/5 Hip flexion: R 5/5 L 5/5 Hip extension: R 5/5 L 5/5 Knee flexion: R 5/5 L 5/5 Knee extension: R 5/5 L 5/5 Sensory: RUE: Light touch intact LUE: Light touch intact RLE: Light touch intact LLE: Light touch intact No clonus Plantar reflex downgoing bilaterally Cerebellum: RUE: No dysmetria (finger to nose), no dysdiadochokinesia (rapid alternating movements) LUE: No dysmetria (finger to nose), no dysdiadochokinesia (rapid alternating movements) RLE: No dysmetria (heel to santos) LLE: No dysmetria (heel to santos) Romberg: negative Gait: Normal stance, stride length. Patient feels dizzy and off balance while walking. Objective Labs 01/09/25 05:04 01/09/25 05:04 Labs: Laboratory Results - last 24 hr 01/08/25 01/09/25 08:45 05:04 WBC 6.3 7.0 RBC 4.57 4.38 Hgb 13.9 13.0 Hct 42.2 40.8 MCV 92 93 MCH 30.4 29.7 MCHC 32.9 31.9 RDW Std Deviation 46.7 H 47.1 H Plt Count 235 213 Neut % (Auto) 64 54 Lymph % (Auto) 27 35 Childress % (Auto) 7 8 Eos % (Auto) 2 2 Baso % (Auto) 1 0 Neut # (Auto) 4.0 3.8 Lymph # (Auto) 1.7 2.5 Childress # (Auto) 0.5 0.6 Eos # (Auto) 0.1 0.1 Baso # (Auto) 0.0 0.0 Immature Gran # (Auto) 0.02 H 0.01 H Absolute Nucleated RBC 0.00 0.00 Immature Gran % 0 0 Nucleated RBC % 0 0 PT 12.0 INR 1.1 APTT 31.2 Sodium 144 145 Potassium 4.2 3.7 D Chloride 105 107 Carbon Dioxide 28.5 26.7 Anion Gap 11 11 BUN 11 8 L Creatinine 0.9 0.7 Estim Creat Clear Calc 56.5 L 73.6 eGFR > 60 > 60 BUN/Creatinine Ratio 12 11 L Glucose 98 89 Calculated Osmolality 286 286 Calcium 9.7 9.6 Corrected Calcium 9.7 9.7 Phosphorus 3.7 Magnesium 1.9 1.9 Total Bilirubin 0.5 0.6 AST 28 25 ALT 15 16 Alkaline Phosphatase 37 L 35 L Troponin I < 0.020 B-Natriuretic Peptide 71 Total Protein 6.8 6.4 Albumin 4.3 3.9 Globulin 2.5 2.5 Albumin/Globulin Ratio 1.7 1.6 Quality Measures Quality Measures none Advance care planning discussed with:: patient and spouse Assessment & Plan Assessment Current Active Medications: Generic Name Dose Route Start Last Admin Trade Name Freq PRN Reason Stop Dose Admin Acetaminophen 650 mg 01/08/25 14:07 Acetaminophen 325 Mg Tablet PO 02/07/25 14:06 Q6H PRN Fever >101.5 Acetaminophen 650 mg 01/08/25 14:07 Acetaminophen 325 Mg Tablet PO 02/07/25 14:06 Q6H PRN PAIN SCALE 1-3 (mild Apixaban 5 mg 01/08/25 21:00 01/08/25 20:38 Apixaban 2.5 Mg Tablet PO 02/07/25 20:59 5 mg BID MILADY Administration Atenolol 50 mg 01/08/25 14:15 01/08/25 20:35 Atenolol 25 Mg Tablet PO 02/07/25 14:14 50 mg BID MILADY Administration Atorvastatin Calcium 20 mg 01/08/25 21:00 01/08/25 20:38 Atorvastatin Calcium 20 Mg Tablet PO 02/07/25 20:59 20 mg HS MILADY Administration Labetalol HCl 10 mg 01/08/25 14:19 01/08/25 17:30 Labetalol Inj 5 Mg/Ml Vial 20 Ml IVP 02/07/25 14:29 10 mg Q10MIN PRN Administration sBP > 180 or dBP > 100 Ondansetron HCl 4 mg 01/08/25 14:07 Ondansetron Inj 2 Mg/Ml Inj 2 Ml IVP 02/07/25 14:06 Q6H PRN NAUSEA OR VOMITING Protocol Sennosides 1 tab 01/08/25 14:27 Senna/Docusate Sod 1 Tab Tablet PO 02/07/25 14:26 QDAY PRN CONSTIPATION Protocol Plan Ms. Smith is a 79 y/o female with PMH of afib s/p ablation 12/31/24, sick sinus syndrome s/p pacemaker 12/18/2022, TIA, HLD, HTN, BPPV who presents with 2 episodes of syncope preceded by dizziness. Admitted for syncope workup. #Syncope 2 episodes of syncope in the past 4 days when sitting up from supine position. Prodrome several seconds of dizziness. LOC for several seconds. Complete and immediate return of consciousness w/o confusion Pt had one episode of syncope years ago. Similar presentation. EKG, Troponin, CBC, CMP, BNP WNL. Orthostatics positive. Repeat orthostatics negative. Orthostatics resolved with IV fluids. Given 1L LR in ED. Likely orthostatic in nature. Given extensive cardiac hx, must r/o other cardiac causes. Other DDX includes vasovagal, ventricular arrhythmia, dehydration, autonomic dysfunction Plan: - Consulted Dr. Solorzano, luna recs - Pending TTE - Pacemarker interrogation by cardiology - Pending CT head w/o #Hypertension 199/107 in ED after 1L LR given Plan: - Continue Atenolol 50 mg PO BID - Labetalol 10 mg IV q10min PRN sBP > 180 or dBP > 100 #Afib s/p ablation 12/31/24 #Sick sinus syndrome s/p pacemarker Home med: Eliquis 5 mg PO BID, Atenolol 50 mg BID Plan: - Continue home Eliquis 5 mg PO BID - Continue home Atenolol 50 mg PO BID #TIA #Hyperlipidemia Home med: Simvastatin 20 mg QHS (not on formulary) Plan: - Atorvastatin 20 mg PO QHS - Per cardiology, pt does not need antiplatelet therapy in addition to Eliquis Checklist Dispo: Pending syncope workup Diet: Cardiac Bowel Reg: Doc-Senna daily PRN VTE ppx: Eliquis 5 mg PO BID GI ppx: Pantoprazole 20 mg PO daily Pain mgmt: Tylenol PRN Code status: full Plan discussed with Dr. Guardado and Dr. Yeimi Carroll MD PGY1
[2025-01-09] MEDS: Magnesium Sulfate 2 GM Ivpb 2 GM/50 ML BAG IV (08:02)
[2025-01-09] MEDS: APIXABAN 2.5 MG TABLET 5 MG PO ×2 (09:07→20:28)
--- NOTE | 2025-01-09 09:57 | XR_ITS ---
Examination: CT brain head without contrast. 2-D sagittal coronal reconstructions Date and time of exam:08/09/2024, 10:54 AM CTDI: vol (mGy):45.7 DLP: (mGycm):927 INDICATION: Syncope. COMPARISON: 10/03/2023 Technique: Multiple CT axial sections of the brain have been obtained, 5 mm slice thickness. Contrast has not been administered. 2-D sagittal, coronal reconstructions have been obtained Low dose protocols were performed. One or more of the following dose reduction techniques were used; automated exposure control, adjustment of the mA and/or KV according to patient size, use of iterative reconstruction technique. Findings: No significant ventricular enlargement. Periventricular low density white matter changes consistent with chronic small vessel disease. 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 Intra-axial or extra-axial hemorrhage density is not seen. No mass effect or midline shift Basal cisterns are not remarkable. Fourth ventricle is midline. Cranial vault intact. Impression: Negative for acute hemorrhage, mass effect or midline shift Stable chronic changes as above.
[2025-01-09] MEDS: ATORVASTATIN CALCIUM 20 MG TABLET PO (20:26)
--- NOTE | 2025-01-09 23:18 | ESPR_ITS ---
RE: BRANDI STATON : 1945 DATE OF SERVICE: 01/09/2025 SUBJECTIVE: The patient is seen in telemetry. She had a pulmonary vein ablation procedure for atrial fibrillation about 10 days ago, seen by me in the office, near syncopal episodes. She is having nausea and dizziness with what appears to be some positional vertigo-like symptoms. She never fully fainted, but near syncope. She normally does take beta urban, blood pressure is high yesterday, today slightly better, resumed beta urban, still elevated at 158/86. She is concerned about that. Also receiving labetalol IV as necessary. She normally does take atenolol 50 mg twice daily at home and amiodarone 200 mg daily along with apixaban 5 mg twice daily. She did undergo CT scan of the head today because of the headaches. CT of the head is reported as essentially negative for any issues, which is as expected. EKG showed no arrhythmia so far, sinus rhythm. Pacemaker is functioning well. Clinically, she is still feeling dizzy when she moves her head. There is some positional element of vertigo. She did have positional vertigo before. PHYSICAL EXAMINATION: Vital Signs: Today's exam this evening, blood pressure 178/86, pulse 70, respiratory rate 19, and temperature normal. Neck: Supple. No JVD. Chest: Symmetrical. Lungs: Decreased breath sounds at bases. No rales or rhonchi. Heart: S1 and S2 regular. S4 gallop heard. Abdomen: Thin and soft. Extremities: No edema. Genitourinary and Rectal: Not performed. Neurologic: Normal. ASSESSMENT: 1. Status post pulmonary vein ablation procedure for atrial fibrillation 10 days post with recurrent near syncope and dizziness. 2. Vestibular dizziness and possible positional vertigo with nausea. 3. Moderately severe hypertension, stage II, not controlled with atenolol alone. RECOMMENDATIONS: I will continue atenolol 50 mg b.i.d. and meclizine 25 mg b.i.d. to be tried. We will add low dose ARB, valsartan 80 mg daily for hypertension and probably discharge at home tomorrow. No need for echocardiogram examination. I could do this as an outpatient since we have shortage of echo technology over the next few days. DT: 22:33:27 TT: 23:16:00 Ref: [id number] - TID: [id number]
[2025-01-10] VITALS: BP 150/90; PULSE 70; RESP 16; TEMP 36.4; O2SAT 98
[2025-01-10 03:53] VITALS: PULSE 70
[2025-01-10 04:00] VITALS: BP 153/84; PULSE 75; RESP 18; TEMP 36.4; O2SAT 98
[2025-01-10 06:00] VITALS: BMI 34.4
[2025-01-10 06:06] LABS: Basophils # (Auto) 0.0 Thou/mm3 (0.0-0.2); Basophils % (Auto) 0 % (0-2.5); Eosinophils # (Auto) 0.1 Thou/mm3 (0.0-0.5); Eosinophils % (Auto) 2 % (0-10); Hematocrit 42.5 % (36.0-46.0); Hemoglobin 13.6 g/dL (12.0-16.0); Immature Granulocytes Auto 0.01 Thou/mm3 (0.00-0.00); Lymphocytes # (Auto) 2.3 Thou/mm3 (1.0-4.8); Lymphocytes % (Auto) 35 % (10-50); Mean Corpuscular HGB Conc 32.0 g/dl (31.0-37.0); Mean Corpuscular Hemoglobin 29.6 pg (25.0-35.0); Mean Corpuscular Volume 93 fL (80-100); Monocytes # (Auto) 0.5 Thou/mm3 (0.0-0.8); Monocytes % (Auto) 7 % (0-12); Neutrophils # (Auto) 3.7 Thou/mm3 (1.8-7.7); Neutrophils % (Auto) 56 % (37-80); Nucleated Red Blood Cell # 0.00 Thou/mm3 (0.00-0.00); Nucleated Red Blood Cell % 0 /100 WBC (0); Platelet Count 224 Thou/mm3 (140-440); RDW Standard Deviation 46.5 fL (36.4-46.3); Red Blood Count 4.59 Miln/mm3 (4.00-5.20); White Blood Count 6.7 Thou/mm3 (3.6-11.0)
[2025-01-10 06:25] LABS: Alanine Aminotransferase 16 U/L (10-49); Albumin, Serum 4.1 gm/dL (3.4-4.8); Albumin/Globulin Ratio 1.6 (1.2-2.2); Alkaline Phosphatase 36 U/L (46-116); Anion Gap 10 (7-16); Aspartate Amino Transferase 24 U/L (0-34); BUN/Creatinine Ratio 15 Ratio (12-20); Bilirubin,Total 0.6 mg/dL (0.3-1.2); Blood Urea Nitrogen 12 mg/dL (9-23); Calcium 9.9 mg/dL (8.3-10.6); Calcium (Corrected) 9.9 mg/dL (8.5-10.1); Carbon Dioxide 26.8 mMol/L (20.0-31.0); Chloride 106 mMol/L (98-107); Creatinine (Component) 0.8 mg/dL (0.6-1.3); Estimated Creatinine Clearance 64.4 mL/min (>60); Globulin 2.5 gm/dL (2.3-3.5); Glucose 87 mg/dL (74-106); Magnesium 2.2 mg/dL (1.6-2.6); Osmolality,Calculated 283 (275-295); Phosphorous 3.2 mg/dL (2.4-5.1); Potassium 4.1 mMol/L (3.4-5.1); Sodium 143 mMol/L (136-145); Total Protein 6.6 gm/dL (5.7-8.2); eGFR > 60 See Note
--- NOTE | 2025-01-10 07:08 | PD.RESPRO ---
Documentation for date of: 01/10/25 Exam Vital Signs Temp Pulse Resp BP Pulse Ox O2 Del Method 97.5 F 75 18 153/84 H 98 Room Air 01/10/25 04:00 01/10/25 04:00 01/10/25 04:00 01/10/25 04:00 01/10/25 04:00 01/10/25 04:00 Narrative Exam General: No acute distress, well nourished Eye: PERRL, EOMI, normal conjunctiva, no scleral icterus HENT: Normocephalic, atraumatic, normal hearing, moist oral mucosa Neck: Supple, non-tender, no JVD, no lymphadenopathy Lungs: Clear to auscultation bilaterally, non-labored respirations, symmetric chest rise, no use of accessory muscles Heart: Normal S1 and S2, no S3 or S4 appreciated. Normal rate and regular rhythm, no murmurs, rubs gallops, or edema. Peripheral pulses intact bilaterally, capillary refill brisk distally Abdomen: Soft, non-tender, non-distended, normal bowel sounds. No guarding or rebound tenderness. Musculoskeletal: Normal range of motion and strength, no tenderness or swelling Skin: Skin is warm, dry, no rashes or lesions. Psychiatric: Cooperative, appropriate mood and affect Neurologic: Mental status: Orientation: Oriented to person, place, time, and situation Communication: Patient is cooperative and can follow simple instructions Language: Speech fluent, normal rate and volume, comprehension intact Cranial nerves: CN II: Visual colvin intact CN III: Pupils equal, round, and reactive to light CN III, IV, : No gaze deviation, no nystagmus Horizontal pursuit: intact Vertical pursuit: intact Ptosis: none CN V: Facial sensation to light touch intact bilaterally at the forehead, cheeks, and jaw line CN VII: Face symmetric, no facial droop appreciated CN VIII: Able to hear and respond to conversation at normal volume, intact to finger rub CN IX, X: Palate elevation symmetric, uvula midline CN XI: Head turn and shoulder shrug strong, symmetric bilaterally CN XII: Normal tongue protrusion without deviation, no fasciculations Motor: Normal bulk and tone No atrophy No abnormal movements or fasciculations Muscle strength: Shoulder abduction: R 5/5 L 5/5 Elbow flexion: R 5/5 L 5/5 Elbow extension: R 5/5 L 5/5 Hip flexion: R 5/5 L 5/5 Hip extension: R 5/5 L 5/5 Knee flexion: R 5/5 L 5/5 Knee extension: R 5/5 L 5/5 Sensory: RUE: Light touch intact LUE: Light touch intact RLE: Light touch intact LLE: Light touch intact No clonus Plantar reflex downgoing bilaterally Cerebellum: RUE: No dysmetria (finger to nose), no dysdiadochokinesia (rapid alternating movements) LUE: No dysmetria (finger to nose), no dysdiadochokinesia (rapid alternating movements) RLE: No dysmetria (heel to santos) LLE: No dysmetria (heel to santos) Romberg: negative Gait: Normal stance, stride length. Patient feels dizzy and off balance while walking. Objective Labs 01/10/25 04:40 01/10/25 04:40 Labs: Laboratory Results - last 24 hr 01/10/25 04:40 Sodium 143 Potassium 4.1 Chloride 106 Carbon Dioxide 26.8 Anion Gap 10 BUN 12 Creatinine 0.8 Estim Creat Clear Calc 64.4 eGFR > 60 BUN/Creatinine Ratio 15 Glucose 87 Calculated Osmolality 283 Calcium 9.9 Corrected Calcium 9.9 Phosphorus 3.2 Magnesium 2.2 Total Bilirubin 0.6 AST 24 ALT 16 Alkaline Phosphatase 36 L Total Protein 6.6 Albumin 4.1 Globulin 2.5 Albumin/Globulin Ratio 1.6 Quality Measures Quality Measures none Assessment & Plan Assessment Current Active Medications: Generic Name Dose Route Start Last Admin Trade Name Freq PRN Reason Stop Dose Admin Acetaminophen 650 mg 01/08/25 14:07 Acetaminophen 325 Mg Tablet PO 02/07/25 14:06 Q6H PRN Fever >101.5 Acetaminophen 650 mg 01/08/25 14:07 Acetaminophen 325 Mg Tablet PO 02/07/25 14:06 Q6H PRN PAIN SCALE 1-3 (mild Apixaban 5 mg 01/08/25 21:00 01/09/25 20:28 Apixaban 2.5 Mg Tablet PO 02/07/25 20:59 5 mg BID MILADY Administration Atenolol 50 mg 01/08/25 14:15 01/09/25 20:26 Atenolol 25 Mg Tablet PO 02/07/25 14:14 50 mg BID MILADY Administration Atorvastatin Calcium 20 mg 01/08/25 21:00 01/09/25 20:26 Atorvastatin Calcium 20 Mg Tablet PO 02/07/25 20:59 20 mg HS MILADY Administration Labetalol HCl 10 mg 01/08/25 14:19 01/08/25 17:30 Labetalol Inj 5 Mg/Ml Vial 20 Ml IVP 02/07/25 14:29 10 mg Q10MIN PRN Administration sBP > 180 or dBP > 100 Meclizine HCl 25 mg 01/09/25 22:33 Meclizine Hcl 25 Mg Tablet PO 02/08/25 22:32 TID PRN DIZZINESS Ondansetron HCl 4 mg 01/08/25 14:07 Ondansetron Inj 2 Mg/Ml Inj 2 Ml IVP 02/07/25 14:06 Q6H PRN NAUSEA OR VOMITING Protocol Sennosides 1 tab 01/08/25 14:27 Senna/Docusate Sod 1 Tab Tablet PO 02/07/25 14:26 QDAY PRN CONSTIPATION Protocol Valsartan 80 mg 01/10/25 09:00 Valsartan 80 Mg Tablet PO 02/09/25 08:59 QDAY MILADY Plan Ms. Smith is a 79 y/o female with PMH of afib s/p ablation 12/31/24, sick sinus syndrome s/p pacemaker 12/18/2022, TIA, HLD, HTN, BPPV who presents with 2 episodes of syncope preceded by dizziness. Admitted for syncope workup. #Syncope #Dizziness 2 episodes of syncope in the past 4 days when sitting up from supine position. Prodrome several seconds of dizziness. LOC for several seconds. Complete and immediate return of consciousness w/o confusion Pt had one episode of syncope years ago. Similar presentation. EKG, Troponin, CBC, CMP, BNP WNL. Orthostatics positive. Repeat orthostatics negative. Orthostatics resolved with IV fluids. CT head negative for hemorrhage, mass effect, midline shift. Given 1L LR in ED. Likely orthostatic in nature. Given extensive cardiac hx, must r/o other cardiac causes. Other DDX includes vasovagal, ventricular arrhythmia, dehydration, autonomic dysfunction Plan: - Consulted Dr. Solorzano, appreciate recs - F/U outpatient with Dr. Solorzano for TTE - Meclizine 25 mg PO TID #Hypertension 199/107 in ED after 1L LR given Plan: - Consulted Dr. Solorzano, appreciate recs - Continue Atenolol 50 mg PO BID - Valsartan 80 mg PO daily - Labetalol 10 mg IV q10min PRN sBP > 180 or dBP > 100 #Afib s/p ablation 12/31/24 #Sick sinus syndrome s/p pacemarker Home med: Eliquis 5 mg PO BID, Atenolol 50 mg BID Plan: - Continue home Eliquis 5 mg PO BID - Continue home Atenolol 50 mg PO BID #TIA #Hyperlipidemia Home med: Simvastatin 20 mg QHS (not on formulary) Plan: - Atorvastatin 20 mg PO QHS - Per cardiology, pt does not need antiplatelet therapy in addition to Eliquis Checklist Dispo: Pending syncope workup Diet: Cardiac Bowel Reg: Doc-Senna daily PRN VTE ppx: Eliquis 5 mg PO BID GI ppx: Pantoprazole 20 mg PO daily Pain mgmt: Tylenol PRN Code status: full Plan discussed with Dr. Guardado and Dr. Yeimi Carroll MD PGY1
--- NOTE | 2025-01-10 07:23 | PC.SS ---
NAUMKEAG OPERATOR conducted bedside contact with the patient conduct initial assessment and to discuss discharge planning.? Patient confirmed demographic information.? Patient resides at home with spouse, Zia Smith.? Patient is a retired book keeper.? Patient does not utilize DME to assist with ambulation.? Patient does not utilize home oxygen.? Patient describes the ability to complete ADL?s independently.? Patient reports possessing ability to drive vehicle.? Patient identified daughter, Tamera Delgadillo ; as medical surrogate decision maker.? Patient?s PCP is Dr. Casas.? Dr. Chahal is the patient?s bicycle racer.? Patient does not participate with dialysis.? Discharge plan is for the patient to return home at the time of discharge.? If home health recommended no preferred agency identified.? Family will provide transportation on behalf of the patient.? No further discharge needs identified by the patient.? No further intervention required at this time, health social work professor will be available to address any further concerns.? Next of Kin: Tamera Delgadillo D/C Plan: Home Address: [address], [facility]
[2025-01-10 08:00] VITALS: BP 142/90; PULSE 70; RESP 17; TEMP 36.2; O2SAT 96
--- NOTE | 2025-01-10 08:03 | ESDS_ITS ---
<Statement entered by Kristopher Rey MD - 01/10/25 17:40> Patient was examined and case was reviewed with team including attending physician. Note reviewed, I agree with most of its contents and agree with the patient's care. Kristopher Rey MD PGY-2 Planned Discharge Date 01/10/25 DS: Providers Provider Date of admission: 01/08/25 14:07 Primary care physician: Montse Casas MD Admitting Provider: Xander Jalloh MD Attending Provider on Admission: Xander Jalloh MD Consults: 01/08/25 14:20 Consult to Cardiology Routine Comment: Consulting Provider: Winnie Solorzano Attending Provider on DC: RESIDENT Eric Discharging Provider: RESIDENT Eric DS: Diagnosis Problem List Completed Was Problem List Reviewed/Reconciled?: Yes Hospital Course Hospital Course Hospital course: Hospital Course Ms. Smith is a 79 y/o female with PMH of afib s/p ablation 12/31/24, sick sinus syndrome s/p pacemaker 12/18/2022, TIA, HLD, HTN, BPPV who presented to the ED on 01/08 with 2 episodes of syncope. Prodrome several seconds of dizziness, LOC for several seconds. with complete and immediate return of consciousness. No neuro deficits on exam. EKG, Troponin, CBC, CMP, BNP WNL. Orthostatics positive. CT head negative for acute hemorrhage. Given IVF. Episodes most likely orthostatic in nature. Cardiology (Dr. Solorzano) was consulted. Performed pacemaker interrogation. Little concern for cardiac etiology. Started patient on Meclizine 25 mg PO TID. Added Valsartan 80 mg PO daily for more optimized BP control. Continued home Atenolol 50 mg PO BID, Eliquis 5 mg PO BID, Atorvastatin 20 mg PO QHS. Patient will f/u outpatient for TTE. Patient stable and medically cleared for discharge. Diagnoses #Syncope - most likely orthostatic #Dizziness #Hypertension #Afib s/p ablation 12/31/24 #Sick sinus syndrome s/p pacemarker #Hx TIA #Hyperlipidemia Discharge Instructions Follow-up with your primary care physician within 1 week of discharge. Follow-up with cardiology within 2 weeks of discharge for further evaluation with echocardiogram as we do not have the technology at this time. You have been prescribed atenolol 50 mg to twice daily and valsartan 80 mg daily for your hypertension. Please take the rest of your medications as prescribed. Should her symptoms recur or worsen patient is instructed to return to the ER. Daija Carroll MD PGY1 Time Spent with Patient Time attestation: Total time spent providing and/or coordinating discharge services: Time spent: Greater than 30 minutes Exam Vital Signs Temp Pulse Resp BP Pulse Ox O2 Del Method 97.5 F 75 18 153/84 H 98 Room Air 01/10/25 04:00 01/10/25 04:00 01/10/25 04:00 01/10/25 04:00 01/10/25 04:00 01/10/25 04:00 Narrative Exam General: No acute distress, well nourished Eye: PERRL, EOMI, normal conjunctiva, no scleral icterus HENT: Normocephalic, atraumatic, normal hearing, moist oral mucosa Neck: Supple, non-tender, no JVD, no lymphadenopathy Lungs: Clear to auscultation bilaterally, non-labored respirations, symmetric chest rise, no use of accessory muscles Heart: Normal S1 and S2, no S3 or S4 appreciated. Normal rate and regular rhythm, no murmurs, rubs gallops, or edema. Peripheral pulses intact bilaterally, capillary refill brisk distally Abdomen: Soft, non-tender, non-distended, normal bowel sounds. No guarding or rebound tenderness. Musculoskeletal: Normal range of motion and strength, no tenderness or swelling Skin: Skin is warm, dry, no rashes or lesions. Psychiatric: Cooperative, appropriate mood and affect Neurologic: Mental status: Orientation: Oriented to person, place, time, and situation Communication: Patient is cooperative and can follow simple instructions Language: Speech fluent, normal rate and volume, comprehension intact Cranial nerves: CN II: Visual colvin intact CN III: Pupils equal, round, and reactive to light CN III, IV, : No gaze deviation, no nystagmus Horizontal pursuit: intact Vertical pursuit: intact Ptosis: none CN V: Facial sensation to light touch intact bilaterally at the forehead, cheeks, and jaw line CN VII: Face symmetric, no facial droop appreciated CN VIII: Able to hear and respond to conversation at normal volume, intact to finger rub CN IX, X: Palate elevation symmetric, uvula midline CN XI: Head turn and shoulder shrug strong, symmetric bilaterally CN XII: Normal tongue protrusion without deviation, no fasciculations Motor: Normal bulk and tone No atrophy No abnormal movements or fasciculations Muscle strength: Shoulder abduction: R 5/5 L 5/5 Elbow flexion: R 5/5 L 5/5 Elbow extension: R 5/5 L 5/5 Hip flexion: R 5/5 L 5/5 Hip extension: R 5/5 L 5/5 Knee flexion: R 5/5 L 5/5 Knee extension: R 5/5 L 5/5 Sensory: RUE: Light touch intact LUE: Light touch intact RLE: Light touch intact LLE: Light touch intact No clonus Plantar reflex downgoing bilaterally Cerebellum: RUE: No dysmetria (finger to nose), no dysdiadochokinesia (rapid alternating movements) LUE: No dysmetria (finger to nose), no dysdiadochokinesia (rapid alternating movements) RLE: No dysmetria (heel to santos) LLE: No dysmetria (heel to santos) Romberg: negative Gait: Normal stance, stride length. Patient feels dizzy and off balance while walking. Discharge Plan Plan Patient Disposition: HOME (Self Care) Care Plan Goals: Follow-up with your primary care physician within 1 week of discharge. Follow-up with cardiology within 2 weeks of discharge for further evaluation with echocardiogram as we do not have the technology at this time. You have been prescribed atenolol 50 mg to twice daily and valsartan 80 mg daily for your hypertension. Please take the rest of your medications as prescribed. Should her symptoms recur or worsen patient is instructed to return to the ER. Prescriptions/Referrals Prescriptions/Med Rec: New atenolol 50 mg tablet 50 mg PO BID Qty: 60 0RF valsartan 80 mg tablet 80 mg PO QDAY Qty: 30 0RF meclizine 25 mg tablet 25 mg PO QDAY PRN (Reason: dizziness) Qty: 30 0RF Continued omeprazole 20 MG tablet,delayed release (DR/EC) 1 tab PO DAILY Qty: 0 furosemide [Lasix] 40 MG tablet 40 mg PO QDAY Qty: 0 meloxicam 15 mg Tablet 15 mg PO DAILY omega-3 fatty acids-vitamin E 1,000 mg Capsule 1 cap PO DAILY simvastatin 20 MG tablet 1 tab PO HS Qty: 0 0RF ascorbic acid (vitamin C) [Vitamin C] 1,000 mg Tablet 1 g PO DAILY xcaxdffhjpfe-Df-viyj-minerals Tablet 1 tab PO DAILY calcium carbonate-vitamin D3 [Calcium 500 + D] 500 mg(1,250mg) -200 unit Tablet 1 tab PO QDAY cholecalciferol (vitamin D3) [Vitamin D3] 50 mcg (2,000 unit) Capsule 50 mcg PO QDAY Liver Complex 250-250 mg Tablet 1 tab PO DAILY clonazepam 1 mg Tablet 1 mg PO QDAY PRN (Reason: Anxiety) Qty: 0 0RF loratadine 10 mg Tablet 10 mg PO QDAY PRN (Reason: Allergic Symptoms) Qty: 0 0RF apixaban 5 mg tablet 5 mg PO BID Qty: 60 1RF amiodarone 200 mg tablet 200 mg PO QDAY Qty: 60 1RF Discontinued potassium chloride [Klor-Con 10] 10 MEQ tablet extended release 10 meq PO QDAY Qty: 0 atenolol 25 mg Tablet 25 mg PO QDAY Qty: 30 0RF Referrals: Montse Casas MD [Primary Care Provider] - Patient/Caregiver Discharge Instructions Education Materials: Controlling High Blood Pressure, AFL/Afib, Causes of Syncope, Dizziness Balance Probs Fainting, Dizziness Fainting Poss Causes Print Language: Czech Stand Alone Forms: Shandra Award Info., Patient Portal Info Letter Discharge Order Discharge Orders: Discharge (Routine); Ordered 01/10/25 Ordered By: Kristopher Rey Quality Discharge Quality Measures VTE prophylaxis
[2025-01-10 08:29] VITALS: BP 142/90; PULSE 70
[2025-01-10] MEDS: VALSARTAN 80 MG TABLET PO (08:29)
[2025-01-10] MEDS: APIXABAN 2.5 MG TABLET 5 MG PO (08:29)
[2025-01-10] MEDS: MECLIZINE HCL 25 MG TABLET PO (09:27)
--- NOTE | 2025-01-10 10:42 | PC.SS ---
Update: Patient might possibly d/c home today.
[2025-01-10 12:00] VITALS: BP 125/86; PULSE 70; RESP 18; TEMP 36.1; O2SAT 97
== END 2025-01-10 12:40 | disposition home or self-care (01) | DRG 312 ==
LOC: SERX 10:01 → SERHOLD 14:38 → S2NX 18:30
PROVIDERS: Nurse Practitioner Primary Care; Admitting Provider Internal Medicine; Emergency Provider Emergency Medicine; PCP Family Medicine; Visit Provider Internal Medicine
DX: R55 Syncope and collapse (principal); G45.9 Transient cerebral ischemic attack, unspecified; I48.0 Paroxysmal atrial fibrillation; E78.5 Hyperlipidemia, unspecified; I25.10 Atherosclerotic heart disease of native coronary artery without angina pectoris; I10 Essential (primary) hypertension; Z87.891 Personal history of nicotine dependence; Z95.0 Presence of cardiac pacemaker; Z79.01 Long term (current) use of anticoagulants; W06.XXXA Fall from bed, initial encounter; I49.5 Sick sinus syndrome; Y92.003 Bedroom of unspecified non-institutional (private) residence as the place of occurrence of the external cause; J98.4 Other disorders of lung; Z79.899 Other long term (current) drug therapy; Z86.73 Personal history of transient ischemic attack (TIA), and cerebral infarction without residual deficits; Z88.8 Allergy status to other drugs, medicaments and biological substances
CPT/HCPCS: 36415; 70450; 71045; 80053; 83735; 83880; 84100; 84484; 85025; 85610; 85730; 93005; 96361; 96374; J3475; J3490; J7120; A9270; J1920

== ENCOUNTER → 2025-02-25 | Outpatient (CLI) | payer MEDICARE, OTHER, SELFPAY ==
--- NOTE | 2025-02-25 08:59 | XR_ITS ---
EXAMINATION: PA lateral chest 2 views TECHNIQUE: Upright PA lateral chest 2 views Date and time: February 25, 2025, 0908 hours, comparison January 08, 2025 INDICATIONS: Coughing 1 week. FINDINGS: Accentuation of interstitial markings in the lower lung zones Mild prominence left ventricle Cardiac leads satisfactory position Mild prominence central pulmonary arteries Prominent osteopenia IMPRESSION: Suspicious for mild to moderate pulmonary fibrosis, consider high-resolution CT chest without contrast follow-up
== END | disposition home or self-care (01) ==
PROVIDERS: PCP Family Medicine; Referring Provider Family Medicine; Visit Provider Family Medicine
DX: J84.10 Pulmonary fibrosis, unspecified (principal)
CPT/HCPCS: 71046

== ENCOUNTER → 2025-04-16 | Outpatient (CLI) | payer MEDICARE, OTHER, SELFPAY ==
--- NOTE | 2025-04-16 | XR_ITS ---
EXAMINATION: PA lateral chest 2 views TECHNIQUE: Upright PA lateral chest 2 views Date and time: April 16, 2025, 12:11 p.m., comparison February 25, 2025 INDICATIONS: Coughing 1 month. FINDINGS: Mild prominence left ventricle Interstitial disease throughout the lungs especially lung bases Cardiac leads satisfactory position Prominent osteopenia IMPRESSION: Suspicious for pulmonary fibrosis again throughout both lungs especially lung bases
[2025-04-16 14:19] LABS: Basophils # (Auto) 0.1 Thou/mm3 (0.0-0.2); Basophils % (Auto) 1 % (0-2.5); Eosinophils # (Auto) 0.0 Thou/mm3 (0.0-0.5); Eosinophils % (Auto) 0 % (0-10); Hematocrit 46.8 % (36.0-46.0); Hemoglobin 14.7 g/dL (12.0-16.0); Immature Granulocytes Auto 0.11 Thou/mm3 (0.00-0.00); Lymphocytes # (Auto) 4.2 Thou/mm3 (1.0-4.8); Lymphocytes % (Auto) 34 % (10-50); Mean Corpuscular HGB Conc 31.4 g/dl (31.0-37.0); Mean Corpuscular Hemoglobin 28.5 pg (25.0-35.0); Mean Corpuscular Volume 91 fL (80-100); Monocytes # (Auto) 0.8 Thou/mm3 (0.0-0.8); Monocytes % (Auto) 6 % (0-12); Neutrophils # (Auto) 7.1 Thou/mm3 (1.8-7.7); Neutrophils % (Auto) 58 % (37-80); Nucleated Red Blood Cell # 0.00 Thou/mm3 (0.00-0.00); Nucleated Red Blood Cell % 0 /100 WBC (0); Platelet Count 337 Thou/mm3 (140-440); RDW Standard Deviation 46.6 fL (36.4-46.3); Red Blood Count 5.15 Miln/mm3 (4.00-5.20); White Blood Count 12.3 Thou/mm3 (3.6-11.0)
[2025-04-16 14:39] LABS: Alanine Aminotransferase 37 U/L (10-49); Albumin, Serum 4.6 gm/dL (3.4-4.8); Albumin/Globulin Ratio 1.6 (1.2-2.2); Alkaline Phosphatase 39 U/L (46-116); Anion Gap 9 (7-16); Aspartate Amino Transferase 34 U/L (0-34); BUN/Creatinine Ratio 20 Ratio (12-20); Bilirubin,Total 0.3 mg/dL (0.3-1.2); Blood Urea Nitrogen 22 mg/dL (9-23); Calcium 9.7 mg/dL (8.3-10.6); Calcium (Corrected) 9.7 mg/dL (8.5-10.1); Carbon Dioxide 29.8 mMol/L (20.0-31.0); Chloride 106 mMol/L (98-107); Creatinine (Component) 1.1 mg/dL (0.6-1.3); Globulin 2.9 gm/dL (2.3-3.5); Glucose 103 mg/dL (74-106); Osmolality,Calculated 292 (275-295); Potassium 3.4 mMol/L (3.4-5.1); Sodium 145 mMol/L (136-145); Total Protein 7.5 gm/dL (5.7-8.2); eGFR 51 See Note
== END | disposition home or self-care (01) ==
LOC: CDIM 11:42 → COPL 12:17
PROVIDERS: PCP Family Medicine; Referring Provider Family Medicine; Visit Provider Radiology Diagnostic Radiology
DX: R05.1 Acute cough (principal); I10 Essential (primary) hypertension
CPT/HCPCS: 36415; 71046; 80053; 85025

== ENCOUNTER → 2025-04-22 | Outpatient (CLI) | payer MEDICARE, OTHER, SELFPAY ==
--- NOTE | 2025-04-22 16:00 | XR_ITS ---
Examination: CT chest with intravenous contrast 2-D sagittal and coronal reconstructions Exam date and time: March 23, 2025, 1655 hours, comparison August 09, 2020 CTDI:vol (mGy) 13.4 DLP: (mGycm) 519 Technique: Multiple axial sections of the thorax have been obtained. Sections have been obtained, 3 mm slice thickness. Mediastinal and lung density settings have been obtained. Intravenous contrast administered, 60 cc Isovue-370. 2-D sagittal, coronal images obtained. Low dose protocols were performed. One or more of the following dose reduction techniques were used; automated exposure control, adjustment of the mA and/or KV according to patient size, use of iterative reconstruction technique. Findings: No thoracic aortic aneurysm dilatation or dissection No pulmonary artery emboli Mild enlargement cardiac contour Mild calcification left anterior descending coronary artery Stable 5 mm noncalcified pleural-based pulmonary nodule right upper lobe No new pulmonary close Mild pulmonary fibrosis at the lung bases No pneumonia or pulmonary edema Enlarged left thyroid with multiple left thyroid nodules No visualized liver or splenic lesion Contracted gallbladder No pancreatic or adrenal mass No hydronephrosis Moderate osteopenia IMPRESSION: Stable 5 mm noncalcified pleural-based pulmonary nodule right upper lobe No mediastinal lymphadenopathy Mild pulmonary fibrosis at the lung bases
== END | disposition home or self-care (01) ==
LOC: SCAT 15:28
PROVIDERS: PCP Family Medicine; Referring Provider Family Medicine; Visit Provider Family Medicine
DX: R91.1 Solitary pulmonary nodule (principal); J84.10 Pulmonary fibrosis, unspecified
CPT/HCPCS: 71260; A4649; Q9967

== ENCOUNTER → 2025-04-25 | Outpatient (CLI) | payer MEDICARE, OTHER, SELFPAY ==
--- NOTE | 2025-04-25 10:00 | XR_ITS ---
Examination: Screening digital mammography, bilateral Computer aided detection 3-D breast Tomosynthesis, bilateral Date and time of exam: 04/25/2025, 9:23 a.m. Comparisons: 04/24/2024, Indications: Screening Technique: Nonmagnified MLO, CC views of the breasts to been obtained, reconstructed from 3-D Tomosynthesis images. R2 computer aided detection program utilized for evaluation of suspicious masses and/or abnormal calcifications. 3-D Tomosynthesis images obtained. Technologist: Findings: There are scattered areas of fibroglandular density. No evidence of abnormal masses or suspicious calcifications. Impression: BI-RADS category 1: Negative findings (within normal) Recommend 1 year follow-up mammogram
== END | disposition home or self-care (01) ==
LOC: CDIM 09:17
PROVIDERS: Referring Provider Family Medicine; Visit Provider Family Medicine
DX: Z12.31 Encounter for screening mammogram for malignant neoplasm of breast (principal); R92.313 Mammographic fatty tissue density, bilateral breasts
CPT/HCPCS: 77063; 77067